=== PATIENT | female | born 2000 | race Caucasian/White ===

== ENCOUNTER 2024-06-09 23:35 | Emergency (ER) | payer BC ==
--- OUTSIDE RECORDS SUMMARY | 2024-06-09 23:38 | XMS REPORT | Continuity of Care Document ---
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 Name Role Phone [email or web address] Attending Clinician UnavailMacey Nicholson Attending Clinician [phone] [email or web address]_D Admitting Clinician Unavailab jennifer Payers Payer Name Policy Type Policy Number Effective Date Expirati on Date Source [facility] - [facility] [id number] 2022 00:00:00 [facility] ([facility] [id number] [place] [id number] 2012 00:00:00 Social History Smoking Status Start Date Stop Date Source Never Smoker [facility] Medications Ordered Medication Name Filled Medication Name Start Date Stop Date Current Medication? Ordering Clinician Indication Dosage Frequency Signature (SIG) Comments Components Source norethindro ne acetate 1.5 mg-ethinyl estradiol 30 mcg tablet TAKE ONE TABLET BY MOUTH EVERY DAY norethindro ne acetate 1.5 mg-ethinyl estradiol 30 mcg tablet TAKE ONE TABLET BY MOUTH EVERY DAY No norethindr one acetate 1.5 mg-ethinyl estradiol 30 mcg tablet TAKE ONE TABLET BY MOUTH EVERY DAY [facility] Aurovela 1.5/30 (21) 1.5 mg-30 mcg tablet TAKE 1 TABLET BY MOUTH EVERY DAY Aurovela 1.5/30 (21) 1.5 mg-30 mcg tablet TAKE 1 TABLET BY MOUTH EVERY DAY No Aurovela 1.5/30 (21) 1.5 mg-30 mcg tablet TAKE 1 TABLET BY MOUTH EVERY DAY [facility] Vital Signs Vital Name Observation Time Observation Value Comments S ource BP Diastolic 2022-04-11 00:00:00 64 mm[Hg] [facility] Height 2022-04-11 00:00:00 68 [in_i] [facility] BMI (Body Mass Index) 2022-04-11 00:00:00 19.8 kg/m2 [facility] BP Systolic 2022-04-11 00:00:00 112 mm[Hg] [facility] Body Weight 2022-04-11 00:00:00 130 [lb_av] [facility] BP Diastolic 2020-10-12 00:00:00 60 mm[Hg] [facility] Height 2020-10-12 00:00:00 68 [in_i] [facility] BMI (Body Mass Index) 2020-10-12 00:00:00 19.8 kg/m2 [facility] BP Systolic 2020-10-12 00:00:00 110 mm[Hg] [facility] Body Weight 2020-10-12 00:00:00 130 [lb_av] [facility] Encounters Start Date/Time End Date/Time Encounter Type Admission Type Attending [facility] Facility Care Department Encounter ID Source 2023-09-14 00:00:00 2023-09-14 00:00:00 Outpatient [facility] Black_D PRIV PRIV [id number] [facility] 2023-06-25 00:00:00 2023-06-25 00:00:00 Outpatient [facility] Black_D PRIV PRIV [id number] [facility] 2023-06-25 00:00:00 2023-06-25 00:00:00 Outpatient [facility] Black_D PRIV PRIV [id number] [facility] 2023-06-20 00:00:00 2023-06-20 00:00:00 Outpatient [facility] Black_D PRIV PRIV [id number] [facility] 2023-06-18 00:00:00 2023-06-18 00:00:00 Outpatient [facility] Black_D PRIV PRIV [id number] [facility] 2023-04-29 00:00:00 2023-04-29 00:00:00 Outpatient [facility] Black_D PRIV PRIV [id number] [facility] 2022-04-11 00:00:00 2022-04-11 00:00:00 Macey Sharma MD: [place] [address] , Ph. [facility] - [facility] [place] Office [id number] [facility] 2022-04-01 00:00:00 2022-04-01 00:00:00 Outpatient [facility] Black_D PRIV PRIV [id number] [facility] 2021-10-01 12:03:00 2021-10-01 12:03:00 Outpatient [facility] Black_D PRIV PRIV [id number] [facility] 2020-11-23 01:05:00 2020-11-23 01:05:00 Outpatient [facility] Black_D PRIV PRIV [id number] [facility] 2020-11-10 04:33:00 2020-11-10 04:33:00 Outpatient [facility] Black_D PRIV PRIV [id number] [facility] 2020-10-12 00:00:00 2020-10-12 00:00:00 Outpatient ZacharyMacey PRIV PRIV [id number] 2020-10-12 00:00:00 2020-10-12 00:00:00 Macey Sharma MD: [place] [address] , Ph. [facility] - [facility] [place] Office [id number] [facility]
[2024-06-10] MEDS ORDERED: KETOROLAC 10 MG TAB ONE (00:33)
[2024-06-10] MEDS ORDERED: CODEINE 30MG/APAP 300MG TAB ONE (00:34)
[2024-06-10] MEDS ORDERED: methocarbamoL 750 MG TAB ONE (00:34)
[2024-06-10 00:39] LABS: Specific Gravity 1.008 (1.005-1.030)
--- NOTE | 2024-06-10 02:34 | EDPHYS ---
Physician Documentation [facility] Name: Kylie Mazariegos Age: 24 yrs Sex: Female : 2000 Arrival Date: 06/09/2024 Time: 23:35 Bed 13 Private MD: ED Physician Wilberto Lyles HPI: 06/09 23:38 This 24 yrs old Female presents to ER via Unassigned with complaints of Leg sp4 Pain, Low Back Pain. 06/10 20:15 24-year-old female presents with lower back pain. sp4 20:15 Reports that she sustained back injury at work. 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 Send patient has lower back pain with pain radiating down the left leg. No gait impairment. Pain is worse on ambulation. . 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 - Infectious Disease History:: Denies. - Social history:: Smoking status: Reported history of juuling and/or vaping. Patient uses alcohol, but reports only rare drinking. Patient/guardian denies using street drugs. - Family history:: not pertinent. ROS: 06/10 20:15 Constitutional: Negative for fever, chills, and weight loss, positive for lumbar pain sp4 All other systems are negative, Exam: 20:15 Constitutional: This is a well developed, well nourished patient who is awake, alert, sp4 and in no acute distress. Head/Face: Normocephalic, atraumatic. Eyes: Pupils equal round and reactive to light, extra-ocular motions intact. Lids and lashes normal. Conjunctiva and sclera are not injected. Cornea within normal limits. Periorbital areas with no swelling, redness, or edema. ENT: Nares patent. No nasal discharge, no septal abnormalities noted. Tympanic membranes are normal and external auditory canals are clear. Oropharynx with no redness, swelling, or masses, exudates, or evidence of obstruction, uvula midline. Mucous membranes moist. Neck: Trachea midline, no thyromegaly or masses palpated, and no cervical lymphadenopathy. Supple, full range of motion without nuchal rigidity, or vertebral point tenderness. Chest/axilla: Normal chest wall appearance and motion. Nontender with no deformity. No lesions are appreciated. Cardiovascular: Regular rate and rhythm with a normal S1 and S2. No gallops, murmurs, or rubs. Normal PMI, no JVD. No pulse deficits. Respiratory: Lungs have equal breath sounds bilaterally, clear to auscultation and percussion. No rales, rhonchi or wheezes noted. No increased work of breathing, no retractions or nasal flaring. Abdomen/GI: Soft, with normal bowel sounds. No distension or tympany. No guarding or rebound. No evidence of tenderness throughout. Back: No spinal tenderness. Positive for posterior upper lumbar tenderness with bilateral paraspinal lumbar tenderness. Normal gait Skin: Warm, dry with normal turgor. Normal color with no rashes, no lesions, and no evidence of cellulitis. MS/ Extremity: Pulses equal, no cyanosis. Neurovascular intact. Full, normal range of motion. Bilateral strength is normal on exam Neuro: Awake and alert, GCS 15, oriented to person, place, time, and situation. Cranial nerves II-XII grossly intact. Motor strength 5/5 in all extremities. Sensory grossly intact. Bilateral lower extremity reflexes are normal. Lateral lower sensation is normal, there is normal gait. No signs of neurologic deficits Psych: Awake, alert, with orientation to person, place and time. Behavior, mood, and affect are within normal limits Vital Signs: 06/09 23:46 BP 132 / 73; Pulse 57; Resp 17 S; Temp 97.5(O); Pulse Ox 99% on R/A; Weight 63.5 kg lg3 (R); Height 5 ft. 9 in. (R); Pain 02/27; 06/10 01:20 BP 108 / 68; Pulse 51; Resp 17 S; Pulse Ox 99% on R/A; ha1 02:20 BP 109 / 70; Pulse 52; Resp 17; Temp 97.6; Pulse Ox 99% on R/A; ha1 06/09 23:46 Body Mass Index 20.67 (63.50 kg, 175.26 cm) lg3 11 23:46 Pain Scale: Adult lg3 [place] Coma Score: 20:15 Eye Response: spontaneous(4). Motor Response: obeys commands(6). Verbal Response: sp4 oriented(5). Total: 15. MDM: 06/09 23:59 Medical Screening Exam initiated sp4 06/10 02:27 ED course: CLINICAL HISTORY: Spinal injury. COMPARISON: None. TECHNIQUE: CT PELVIS sp4 WITHOUT IV CONTRAST on 06/09/2024 11:50 PM SUPERVISOR WATERPROOFING This exam was performed according to our departmental dose-optimization program, which includes automated exposure control, adjustment of the mA and/or kV according to patient size and/or use of iterative reconstruction technique. FINDINGS: There is no bowel obstruction. Urinary bladder is unremarkable. There is no free fluid. Skeleton: There are no acute osseous findings. No suspicious bony lesions. IMPRESSION: No acute posttraumatic findings. Electronically signed by: Vipul King MD 06/10/2024 02:24 AM SUPERVISOR WATERPROOFING R. ED course: CLINICAL HISTORY: Back injury. COMPARISON: None. TECHNIQUE: CT LUMBAR SPINE WITHOUT IV CONTRAST on 06/09/2024 11:50 PM SUPERVISOR WATERPROOFING This exam was performed according to our departmental dose-optimization program, which includes automated exposure control, adjustment of the mA and/or kV according to patient size and/or use of iterative reconstruction technique. FINDINGS: There is no acute fracture. Vertebral body heights are preserved. Alignment is anatomic. Disc spaces are maintained. Soft tissues are unremarkable. IMPRESSION: No acute fracture or subluxation. . 20:19 Differential diagnosis: dislocation, closed fracture, contusion, abrasion, tendonitis, sp4 Lumbar contusion. Data reviewed: vital signs, nurses notes, radiologic studies, CT scan. 20:20 ED course: Normal, no sign of neurologic impairment, no sign of spinal cord sp4 compression, no sign of cauda equina, normal gait, patient advised work release for the next 7 days. As needed medications for back pain were prescribed. 06/09 23:49 Order name: Test, Urine; Complete Time: 01:32 sp4 06/09 23:50 Order name: CT Lumbar Spine Wo Con sp4 06/09 23:50 Order name: CT Pelvis wo Cont sp4 Administered Medications: 00:51 Drug: Ketorolac PO 10 mg PO once Route: PO; ha1 01:20 Follow up: Response: No adverse reaction; Marked relief of symptoms ha1 00:51 Drug: Acetaminophen-Codeine PO (300 mg-30 mg) 2 tabs PO once; RASS on ADMIN: Combtv4, ha1 Very Agttd3, Agttd2, Rstlss1, AlertClm0, Drwsy-1, Lt Sdtn-2, Mod Sdtn-3, Dp Sdtn-4, UnArsble-5 Route: PO; 01:20 Follow up: Response: No adverse reaction; Marked relief of symptoms; Pain is decreased ha1 00:51 Drug: Methocarbamol PO 1500 mg PO once Route: PO; ha1 01:20 Follow up: Response: No adverse reaction; Marked relief of symptoms ha1 Disposition Summary: 06/10/24 02:33 Discharge Ordered Notes: Location: Home sp4 Problem: new sp4 Symptoms: have improved sp4 Condition: Stable sp4 Diagnosis - Acute lumbar contusion, acute lower back injury, Acute musculoskeletal pain Lumbar sp4 spine Followup: sp4 - With: Private Physician - When: As needed - Reason: Discharge Instructions: - Discharge Summary Sheet sp4 - Acute Back Pain, Adult sp4 Forms: - Work release form sp4 - Patient Portal Instructions sp4 Prescriptions: - naproxen 500 mg Oral tablet - take 1 tablet ORAL route every 12 hours PRN pain; 50 tablet; Refills: 0, sp4 Product Selection Permitted - methocarbamol 750 mg Oral tablet - take 2 tablets ORAL route every 8 hours for 8-10 days PRN back pain; 50 tablet; sp4 Refills: 0, Product Selection Permitted Signatures: Dispatcher [employer] Dang Reyes, RN RN lg3 Milagro Braswell RN RN ha1 Wilberto Lyles MD MD sp4
--- NOTE | 2024-06-10 02:34 | ER ---
Nurse's Notes [facility] Name: Kylie Mazariegos Age: 24 yrs Sex: Female : 2000 Arrival Date: 06/09/2024 Time: 23:35 Bed 13 Private MD: Diagnosis: Acute lumbar contusion, acute lower back injury, Acute musculoskeletal pain Lumbar spine Presentation: 06/09 23:46 Chief complaint: Patient states: hit right upper back at work 2 days ago with lg3 intermittent pain. new onset pain to entire mid and lower back radiating to left leg. Coronavirus screen: Client denies travel out of the [place] in the last 14 days. At this time, the client does not indicate any symptoms associated with coronavirus-19. Ebola Screen: No symptoms or risks identified at this time. Initial Sepsis Screen: Does the patient meet any 2 criteria? No. Patient's initial sepsis screen is negative. Does the patient have a suspected source of infection? No. Patient's initial sepsis screen is negative. Risk Assessment: Do you want to hurt yourself or someone else? Patient reports no desire to harm self or others. Onset of symptoms was June 06, 2024. 23:46 Method Of Arrival: Ambulatory lg3 23:46 Acuity: SARITA 3 lg3 Triage Assessment: 23:49 General: Appears in no apparent distress. uncomfortable, Behavior is calm, cooperative. lg3 Pain: Complains of pain in back and left leg. EENT: No deficits noted. No signs and/or symptoms were reported regarding the EENT system. Neuro: No deficits noted. [place] Agitation-Sedation Scale (RASS): 0 - Alert and Calm Level of Consciousness is awake, alert, obeys commands, Oriented to person, place, time, situation. Cardiovascular: No deficits noted. Denies chest pain, shortness of breath, Capillary refill < 3 seconds Clubbing of nail beds is absent JVD is absent Patient's skin is warm and dry. Respiratory: No deficits noted. Airway is patent Respiratory effort is even, unlabored, Respiratory pattern is regular, symmetrical. GI: No deficits noted. No signs and/or symptoms were reported involving the gastrointestinal system. : No signs and/or symptoms were reported regarding the genitourinary system. Derm: No deficits noted. No signs and/or symptoms reported regarding the dermatologic system. Skin is intact, is healthy with good turgor, Skin is dry, Skin is normal, Skin temperature is warm. Musculoskeletal: Circulation, motion, and sensation intact. Range of motion: intact in all extremities, Reports pain in back and left leg. 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 - Infectious Disease History:: Denies. - Social history:: Smoking status: Reported history of juuling and/or vaping. Patient uses alcohol, but reports only rare drinking. Patient/guardian denies using street drugs. - Family history:: not pertinent. Screenin:52 [facility] ED Fall Risk Assessment (Adult) History of falling in the last 3 months, lg3 including since admission No falls in past 3 months (0 pts) Confusion or Disorientation No (0 pts) Intoxicated or Sedated No (0 pts) Impaired Gait No (0 pts) Mobility Assist Device Used No (0 pt) Altered Elimination No (0 pt) Score/Fall Risk Level 0 - 2 = Low Risk Oriented to surroundings, Maintained a safe environment, Educated pt \T\ family on fall prevention, incl call for assistance when getting out of bed, Assessed \T\ reinforced patient's understanding of fall precautions. Abuse screen: Denies threats or abuse. Denies injuries from another. Nutritional screening: No deficits noted. Tuberculosis screening: No symptoms or risk factors identified. Assessment: 23:52 General: see triage assessment. lg3 06/10 01:00 Reassessment: Patient and/or family updated on plan of care and expected duration. Pain ha1 level reassessed. Patient is alert, oriented x 3, equal unlabored respirations, skin warm/dry/pink. 02:00 Reassessment: Patient and/or family updated on plan of care and expected duration. Pain ha1 level reassessed. Patient is alert, oriented x 3, equal unlabored respirations, skin warm/dry/pink. 02:47 Reassessment: Patient and/or family updated on plan of care and expected duration. Pain ha1 level reassessed. Patient is alert, oriented x 3, equal unlabored respirations, skin warm/dry/pink. Patient denies pain at this time. Patient states feeling better. Patient states symptoms have improved. Vital Signs: 06/09 23:46 BP 132 / 73; Pulse 57; Resp 17 S; Temp 97.5(O); Pulse Ox 99% on R/A; Weight 63.5 kg lg3 (R); Height 5 ft. 9 in. (R); Pain 8/; 06/10 01:20 BP 108 / 68; Pulse 51; Resp 17 S; Pulse Ox 99% on R/A; ha1 02:20 BP 109 / 70; Pulse 52; Resp 17; Temp 97.6; Pulse Ox 99% on R/A; ha1 06/09 23:46 Body Mass Index 20.67 (63.50 kg, 175.26 cm) lg3 06/09 23:46 Pain Scale: Adult lg3 [place] Coma Score: 20:15 Eye Response: spontaneous(4). Motor Response: obeys commands(6). Verbal Response: sp4 oriented(5). Total: 15. ED Course: 06/09 23:37 Patient arrived in ED. jj6 23:38 Wilberto Lyles MD is Attending Physician. sp4 23:49 Triage completed. lg3 23:49 Arm band placed on right wrist. lg3 23:53 Patient has correct armband on for positive identification. Bed in low position. Call ha1 light in reach. Side rails up X 1. Adult w/ patient. 06/10 00:27 Milagro Braswell RN is Primary Nurse. ha1 01:09 CT Lumbar Spine Wo Con In Process Unspecified. EDMS 01:09 CT Pelvis wo Cont In Process Unspecified. EDMS 02:48 Provided Education on: medication administration . ha1 02:48 No provider procedures requiring assistance completed. Patient did not have IV access ha1 during this emergency room visit. Administered Medications: 00:51 Drug: Ketorolac PO 10 mg PO once Route: PO; ha1 01:20 Follow up: Response: No adverse reaction; Marked relief of symptoms ha1 00:51 Drug: Acetaminophen-Codeine PO (300 mg-30 mg) 2 tabs PO once; RASS on ADMIN: Combtv4, ha1 Very Agttd3, Agttd2, Rstlss1, AlertClm0, Drwsy-1, Lt Sdtn-2, Mod Sdtn-3, Dp Sdtn-4, UnArsble-5 Route: PO; 01:20 Follow up: Response: No adverse reaction; Marked relief of symptoms; Pain is decreased ha1 00:51 Drug: Methocarbamol PO 1500 mg PO once Route: PO; ha1 01:20 Follow up: Response: No adverse reaction; Marked relief of symptoms ha1 Medication: 02:32 VIS not applicable for this client. ha1 Outcome: 02:33 Discharge ordered by . sp4 02:48 Discharged to home ambulatory, with family, ha1 02:48 Condition: stable 02:48 Discharge instructions given to patient, Instructed on discharge instructions, follow up and referral plans. no driving heavy equipment, medication usage, Demonstrated understanding of instructions, follow-up care, medications, Prescriptions given X 2, 02:49 Patient left the ED. ha1 Signatures: Dispatcher [employer] EDMS Dang Mccain RN RN lg3 Alisa Persaud jj6 Milagro Braswell RN RN ha1 Wilberto Lyles MD MD sp4
[2024-06-10 02:53] VITALS: O2SAT 99
[2024-06-10 02:55] VITALS: BP 109/70; TEMP 97.6
--- NOTE | 2024-06-10 06:48 | RAD REPORT ---
CLINICAL HISTORY: Spinal injury. COMPARISON: None. TECHNIQUE: CT PELVIS WITHOUT IV CONTRAST on 06/09/2024 11:50 PM ELECTRIC DETECTOR OPERATOR This exam was performed according to our departmental dose-optimization program, which includes autom ated exposure control, adjustment of the mA and/or kV according to patient size and/or use of iterative reconstruction technique. FINDINGS: There is no bowel obstruction. Urinary bladder is unremarkable. There is no free fluid. Skeleton: There are no acute osseous findings. No suspicious bony lesions. IMPRESSION: No acute posttraumatic findings. Electronically signed by: Vipul King MD 06/10/2024 02:24 AM ELECTRIC DETECTOR OPERATOR RP Due to temporary technical issues with the PACS/[employer] reporting system, reports are being whit d by the in-house radiologist without review as a courtesy to ensure prompt reporting the interpreting radiologist is fully responsible for the content of the report. Transcribed Date/Time: 06/10/2024 6:48 AM
--- NOTE | 2024-06-10 06:49 | RAD REPORT ---
CLINICAL HISTORY: Back injury. COMPARISON: None. TECHNIQUE: CT LUMBAR SPINE WITHOUT IV CONTRAST on 06/09/2024 11:50 PM DIRECTOR OF HOTEL OPERATIONS This exam was performed according to our departmental dose-optimization program, which includes autom ated exposure control, adjustment of the mA and/or kV according to patient size and/or use of iterative reconstruction technique. FINDINGS: There is no acute fracture. Vertebral body heights are preserved. Alignment is anatomic. Disc spaces are maintained. Soft tissues are unremarkable. IMPRESSION: No acute fracture or subluxation. Electronically signed by: Vipul King MD 06/10/2024 02:21 AM DIRECTOR OF HOTEL OPERATIONS RP Due to temporary technical issues with the PACS/[employer] reporting system, reports are being whit d by the in-house radiologist without review as a courtesy to ensure prompt reporting the interpreting radiologist is fully responsible for the content of the report. Transcribed Date/Time: 06/10/2024 6:48 AM
== END 2024-06-10 02:49 | disposition home or self-care (01) ==
LOC: ER 23:35
DX: S30.0XXA Contusion of lower back and pelvis, initial encounter (principal); M54.50 Low back pain, unspecified; F41.9 Anxiety disorder, unspecified
CPT/HCPCS: 72131; 72192; 81025; 99283

== ENCOUNTER 2025-03-08 03:40 | Emergency (ER) | payer BC, SELFPAY ==
--- OUTSIDE RECORDS SUMMARY | 2025-03-08 03:43 | XMS REPORT | Continuity of Care Document ---
Author Name Unknown Address [address] [facility] [address] [place] [address] Organization [facility] [place] Address [address] [facility] [address] [place] [address] Care Team Providers Care Associate Professor Of Chemistry Name Role Phone GC_LEXIE_Zachary_D Attending Clinician Unavailab Macey Olsen Attending Clinician [phone] GC_[email or web address]_[email or web address]_D Admitting Clinician Unavailab jennifer Payers Payer Name Policy Type Policy Number Effective Date Expirati on Date Source [facility] [id number] 2022 00:00:00 [facility] [id number] [place] [id number] 2012 00:00:00 Problems Condition Name Condition Details Condition Category Status Onset Date Resolution Date Last Treatment Date Treating Clinician Comments Source Anxiety Anxiety Problem Active 2023-07 00:00: 00 [facility] Depressive disorder Depressive Disorder Problem Active 2023-07 00:00: 00 [facility] Dysmenorrh ea Dysmenorrh ea Problem Active 2023-07 00:00: 00 [facility] Social History Smoking Status Start Date Stop Date Source Current Some Day Smoker [facility] Medications Ordered Medication Name Filled Medication Name Start Date Stop Date Current Medication? Ordering Clinician Indication Dosage Frequency Signature (SIG) Comments Components Source Advil Advil No Advil [facility] Midol Midol No Midol [facility] Multi Vitamin Multi Vitamin No Multi Vitamin [facility] Tylenol Tylenol No Tylenol [facility] Aurovela Fe 1.5/30 (28) 1.5 mg-30 mcg (21)/75 mg (7) tablet TAKE ONE TABLET BY MOUTH EVERY DAY Aurovela Fe 1.5/30 (28) 1.5 mg-30 mcg (21)/75 mg (7) tablet TAKE ONE TABLET BY MOUTH EVERY DAY No Aurovela Fe 1.5/30 (28) 1.5 mg-30 mcg (21)/75 mg (7) tablet TAKE ONE TABLET BY MOUTH EVERY DAY [facility] bupropion HCl XL 150 mg 24 hr tablet, extended release TAKE ONE (1) TABLET(S) BY MOUTH EVERY MORNING. bupropion HCl XL 150 mg 24 hr tablet, extended release TAKE ONE (1) TABLET(S) BY MOUTH EVERY MORNING. No bupropion HCl XL 150 mg 24 hr tablet, extended release TAKE ONE (1) TABLET(S) BY MOUTH EVERY MORNING. [facility] Zafemy 150 mcg-35 mcg/24 hr transdermal patch Apply 1 patch every week by transdermal route for 30 days. Zafemy 150 mcg-35 mcg/24 hr transdermal patch Apply 1 patch every week by transdermal route for 30 days. No Zafemy 150 mcg-35 mcg/24 hr transderma l patch Apply 1 patch every week by transderma l route for 30 days. [facility] Immunizations Ordered Immunization Name Filled Immunization Name Date Status Comments Source influenza, unspecified formulation influenza, unspecified formulation 2020-06-20 00:00:00 Completed [facility] Vital Signs Vital Name Observation Time Observation Value Comments S ource BMI (Body Mass Index) 2024-09-22 00:00:00 22 kg/m2 [facility] Body Weight 2024-09-22 00:00:00 149 [lb_av] [facility] Height 2024-09-22 00:00:00 69 [in_i] [facility] BP Diastolic 2024-09-22 00:00:00 73 mm[Hg] [facility] BP Systolic 2024-09-22 00:00:00 124 mm[Hg] [facility] BP Diastolic 2024-07-08 00:00:00 84 mm[Hg] [facility] BMI (Body Mass Index) 2024-07-08 00:00:00 21.5 kg/m2 [facility] Body Weight 2024-07-08 00:00:00 145.8 [lb_av] [facility] Height 2024-07-08 00:00:00 69 [in_i] [facility] BP Systolic 2024-07-08 00:00:00 124 mm[Hg] [facility] BP Diastolic 2022-04-11 00:00:00 64 mm[Hg] [facility] [...] End Date/Time Encounter Type Admission Type Attending [facility] Facility Care Department Encounter ID Source 2024-09-22 00:00:00 2024-09-22 00:00:00 ENEDINA Manjarrez: [address], [facility] [address], [place] [address] , Ph. [facility] - GC_GCBZW_Cristal Knowles* [id number] [facility] 2024-07-08 00:00:00 2024-07-08 00:00:00 ENEDINA Manjarrez: [address], [facility] [address], [place] [phone] , Ph. [facility] - GC_GCBZW_Cristal Knowles* [id number] [facility] 2023-09-14 00:00:00 2023-09-14 00:00:00 Outpatient GC_[facility]_ Black_D [facility] [id number] [facility] 2023-06-25 00:00:00 2023-06-25 00:00:00 Outpatient GC_SWHAOM[facility]_ Black_D PRIV PRIV [id number] [facility] 2023-06-25 00:00:00 2023-06-25 00:00:00 Outpatient GC_[facility]_ Black_D PRIV PRIV [id number] [facility] 2023-06-20 00:00:00 2023-06-20 00:00:00 Outpatient GC_[facility]_ Black_D PRIV PRIV [id number] [facility] 2023-06-18 00:00:00 2023-06-18 00:00:00 Outpatient GC_[facility]_ Black_D PRIV PRIV [id number] [facility] 2023-04-29 00:00:00 2023-04-29 00:00:00 Outpatient GC_[facility]_ Black_D PRIV PRIV [id number] [facility] 2022-04-11 00:00:00 2022-04-11 00:00:00 Macey Sharma MD: [address] [place] [address] , Ph. [facility] - GC_SWHAOMC_ [place] [facility] [id number] [facility] 2022-04-01 00:00:00 2022-04-01 00:00:00 Outpatient GC_[facility]_ Black_D PRIV PRIV [id number] [facility] 2021-10-01 12:03:00 2021-10-01 12:03:00 Outpatient GC_[facility]_ Black_D PRIV PRIV [id number] [facility] 2020-11-23 01:05:00 2020-11-23 01:05:00 Outpatient GC_[facility]_ Black_D PRIV PRIV [id number] [facility] 2020-11-10 04:33:00 2020-11-10 04:33:00 Outpatient GC_SWH[facility]OM[facility]_ Black_D PRIV PRIV [id number] [facility] 2020-10-12 00:00:00 2020-10-12 00:00:00 Outpatient Macey Sharma [facility] [id number] 2020-10-12 00:00:00 2020-10-12 00:00:00 Macey Sharma MD: [address] [place] [address] , Ph. [facility] [place] [facility] [id number] [facility]
[2025-03-08] MEDS ORDERED: DIAZEPAM 5 MG TABLET ONE (03:57)
[2025-03-08 04:33] LABS: Absolute Lymphocytes (CBC) 2.8 K/uL (0.7-4.9); Hematocrit 38.4 % (36.0-45.0); Hemoglobin 13.1 g/dL (12.0-15.0); MCH 30.1 pg (27.0-35.0); MCHC 34.3 g/dL (32.0-36.0); MCV 87.8 fL (80-100); MPV 10.1 fL (7.6-11.3); Nucleated RBC Absolute Count 0.0 (0-0); Nucleated Red Blood Cells % 0.0 % (0-0); RBC Red Blood Cell Count 4.37 M/uL (3.86-4.86); White Blood Count 7.40 thou/uL (4.3-10.9)
[2025-03-08 04:54] LABS: ALT/SGPT 21 U/L (13-56); AST/SGOT 12 U/L (15-37); Albumin 3.7 g/dL (3.4-5.0); Albumin/Globulin Ratio 1.0 (1.1-1.8); Alkaline Phosphatase 59 U/L (45-117); Anion Gap 9.6 mEq/L (5.0-15.0); BUN Blood Urea Nitrogen 10 mg/dL (7-18); Bilirubin Indirect, Calculated 0.1 mg/dL (0.2-0.8); Globulin 3.7 g/dL (2.3-3.5); Glucose Level 112 mg/dL (74-106); Magnesium 2.1 mg/dL (1.6-2.4); NT PRO-BNP 49 pg/mL (<125); Potassium 3.6 mEq/L (3.5-5.1); Thyroid Stimulating Hormone 3.880 uIU/mL (0.358-3.740); Troponin High Sensitivity < 3.0 pg/mL (<58.9)
--- NOTE | 2025-03-08 05:16 | RAD REPORT ---
INDICATION: CHEST PAIN COMPARISON: No existing relevant imaging studies are available FINDINGS: Single frontal view of the chest was obtained. SUPPORT DEVICES: None HEART/MEDIASTINUM: Cardiomediastinal contours are normal. LUNGS/PLEURA: Lungs are clear. No pleural effusion or pneumothorax. OTHER: No other significant findings. IMPRESSION: No acute findings. Electronically signed by: Hugo Mckeon DO 03/08/2025 05:07 AM CDT RP NR Due to temporary technical issues with the PACS/admetricks reporting system, reports are being whit d by the in-house radiologist without review as a courtesy to ensure prompt reporting the interpreting radiologist is fully responsible for the content of the report. Transcribed Date/Time: 03/08/2025 5:55 AM
--- NOTE | 2025-03-08 05:36 | ER ---
Nurse's Notes [facility] Name: Kylie Mazariegos Age: 24 yrs Sex: Female : 2000 Arrival Date: 03/08/2025 Time: 03:40 Bed 5 Private MD: Marko Patrick Diagnosis: Acute anxiety attack, acute dyspnea Presentation: 03/08 03:52 Chief complaint: Patient states: PT STATES SHE WAS FALLING ASLEEP AND "COULD FEEL br2 HERSELF NOT BREATHING". THIS OCCURRED APPROX 3 TIMES. PT STATE SHE SAT UP AND HR (PER WATCH) WAS IN THE 140'S. PT C/O CP DUE TO TRYING TO CATCH HER BREATH. DENIES N/V/D/F/COUGH. Coronavirus screen: Client denies travel out of the [place] in the last 14 days. Ebola Screen: Patient denies travel to an Ebola-affected area in the 21 days before illness onset. Initial Sepsis Screen: Does the patient meet any 2 criteria? No. Patient's initial sepsis screen is negative. Does the patient have a suspected source of infection? No. Patient's initial sepsis screen is negative. Risk Assessment: Do you want to hurt yourself or someone else? Patient reports no desire to harm self or others. Onset of symptoms is unknown. 03:52 Method Of Arrival: Ambulatory br2 03:52 Acuity: SARITA 3 br2 Triage Assessment: 03:55 General: Appears in no apparent distress. comfortable, Behavior is cooperative, br2 anxious. Pain: Complains of pain in anterior aspect of right upper chest, anterior aspect of left upper chest, right breast and left breast Pain currently is 3 out of 10 on a pain scale. 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 - Infectious Disease History:: Denies. - Social history:: Smoking status: Reported history of juuling and/or vaping. Patient uses alcohol, occasionally. Patient/guardian denies using street drugs. Screenin:04 [facility] ED Fall Risk Assessment (Adult) History of falling in the last 3 months, tb4 including since admission No falls in past 3 months (0 pts) Confusion or Disorientation No (0 pts) Intoxicated or Sedated No (0 pts) Impaired Gait No (0 pts) Mobility Assist Device Used No (0 pt) Altered Elimination No (0 pt) Score/Fall Risk Level 0 - 2 = Low Risk Oriented to surroundings, Maintained a safe environment. Abuse screen: Denies threats or abuse. Denies injuries from another. Nutritional screening: No deficits noted. Tuberculosis screening: No symptoms or risk factors identified. Assessment: 04:04 Reassessment: Patient is alert, oriented x 3, equal unlabored respirations, skin tb4 warm/dry/pink. General: Appears Behavior is calm, cooperative, anxious. Pain: Denies pain. Neuro: No deficits noted. Level of Consciousness is awake, alert, obeys commands, Oriented to person, place, time, situation, Knot Borer are equal bilaterally Moves all extremities. Full function Gait is steady, Speech is normal, Facial symmetry appears normal. Respiratory: Reports shortness of breath at rest Airway is patent Trachea midline Respiratory effort is even, unlabored. GI: No signs and/or symptoms were reported involving the gastrointestinal system. : No signs and/or symptoms were reported regarding the genitourinary system. EENT: No signs and/or symptoms were reported regarding the EENT system. Derm: No signs and/or symptoms reported regarding the dermatologic system. Skin is intact, is healthy with good turgor, Skin is normal, Skin temperature is warm. Musculoskeletal: Circulation, motion, and sensation intact. Range of motion: intact in all extremities. Vital Signs: 03:52 BP 150 / 90; Pulse 92; Resp 18; Temp 97.1(IR); Pulse Ox 97% on R/A; Weight 65.77 kg; br2 Height 5 ft. 9 in. ; Pain 3/10; 04:04 BP 150 / 90; Pulse 86; Resp 18; Temp 97.3(O); Pulse Ox 97% on R/A; Weight 63.5 kg; tb4 Height 5 ft. 9 in. ; Pain 0/10; 05:50 BP 138 / 81; Pulse 86; Resp 17; Pulse Ox 99% on R/A; Pain 0/10; tb4 04:04 Body Mass Index 20.67 (63.50 kg, 175.26 cm) tb4 03:52 Pain Scale: Adult br2 04:04 Pain Scale: Adult tb4 05:50 Pain Scale: Adult tb4 [place] Coma Score: 04:03 Eye Response: spontaneous(4). Motor Response: obeys commands(6). Verbal Response: sp4 oriented(5). Total: 15. ED Course: 03:43 Patient arrived in ED. jj6 03:43 Marko Patrick MD is Private Physician. jj6 03:44 Wilberto Lyles MD is Attending Physician. sp4 03:53 Sulaiman Samson, RN is Primary Nurse. bm8 03:55 Triage completed. br2 03:55 Arm band placed on right wrist. br2 04:04 Patient has correct armband on for positive identification. Placed in gown. Bed in low tb4 position. Call light in reach. Side rails up X 1. Client placed on continuous cardiac and pulse oximetry monitoring. NIBP monitoring applied. Pulse ox on. 04:04 Initial lab(s) drawn, by ED staff, sent to lab. EKG done, by ED staff. Inserted saline tb4 lock: 20 gauge in right antecubital area, using aseptic technique. Blood collected. Flushed with 10 mL NS. 04:44 X-ray(s) taken. tb4 04:53 XRAY Chest (1 view) In Process Unspecified. EDMS 05:35 Rachael Crandall MD is Referral Physician. sp4 05:52 Provided Education on: Follow up with primary care. tb4 05:52 No provider procedures requiring assistance completed. IV discontinued, intact, tb4 bleeding controlled, No redness/swelling at site. Pressure dressing applied. Administered Medications: 03:58 Drug: Diazepam PO 5 mg PO once Route: PO; bm8 05:48 Follow up: Response: No adverse reaction; Anxiety decreased tb4 Medication: 04:04 VIS not applicable for this client. tb4 Outcome: 05:36 Discharge ordered by . sp4 05:51 Discharged to home ambulatory, with family, tb4 05:51 Condition: stable 05:51 Discharge instructions given to patient, Instructed on discharge instructions, follow up and referral plans. Demonstrated understanding of instructions, follow-up care, 05:53 Patient left the ED. tb4 Signatures: Dispatcher [employer] EDMS Alisa Persaud j6 Wilberto Lyles MD MD sp4 Sulaiman Samson, RN RN bm8 Yeimy Salazar, RN RN br2 Judith Little, RN RN tb4
--- NOTE | 2025-03-08 05:36 | EDPHYS ---
Physician Documentation [facility] Name: Kylie Mazariegos Age: 24 yrs Sex: Female : 2000 Arrival Date: 03/08/2025 Time: 03:40 Bed 5 Private MD: Marko Patrick ED Physician Wilberto Lyles HPI: 03/08 03:44 This 24 yrs old Other Race Female presents to ER via Unassigned with complaints of Pt sp4 states she stopped breathing 3 times while falling asleep. 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 - Infectious Disease History:: Denies. - Social history:: Smoking status: Reported history of juuling and/or vaping. Patient uses alcohol, occasionally. Patient/guardian denies using street drugs. Exam: 04:03 Constitutional: This is a well developed, well nourished patient who is awake, alert, sp4 and in no acute distress. Head/Face: Normocephalic, atraumatic. Eyes: Pupils equal round and reactive to light, extra-ocular motions intact. Lids and lashes normal. Conjunctiva and sclera are not injected. Cornea within normal limits. Periorbital areas with no swelling, redness, or edema. ENT: Nares patent. No nasal discharge, no septal abnormalities noted. Tympanic membranes are normal and external auditory canals are clear. Oropharynx with no redness, swelling, or masses, exudates, or evidence of obstruction, uvula midline. Mucous membranes moist. Neck: Trachea midline, no thyromegaly or masses palpated, and no cervical lymphadenopathy. Supple, full range of motion without nuchal rigidity, or vertebral point tenderness. Chest/axilla: Normal chest wall appearance and motion. Nontender with no deformity. No lesions are appreciated. Cardiovascular: Regular rate and rhythm with a normal S1 and S2. No gallops, murmurs, or rubs. No pulse deficits. Respiratory: Lungs have equal breath sounds bilaterally, clear to auscultation and percussion. No rales, rhonchi or wheezes noted. No increased work of breathing, no retractions or nasal flaring. Abdomen/GI: Soft, with normal bowel sounds. No distension or tympany. No guarding or rebound. No evidence of tenderness throughout. Back: No spinal tenderness. No costovertebral tenderness. Skin: Warm, dry with normal turgor. Normal color with no rashes, no lesions, and no evidence of cellulitis. MS/ Extremity: Pulses equal, no cyanosis. Neurovascular intact. Full, normal range of motion. Neuro: Awake and alert, GCS 15, oriented to person, place, time, and situation. Cranial nerves II-XII grossly intact. Motor strength 5/5 in all extremities. Sensory grossly intact. Psych: Awake, alert, with orientation to person, place and time. Behavior, mood, and affect are within normal limits 04:03 ECG was reviewed by the Attending Physician. EKG at 0400 normal sinus rhythm with sinus arrhythmia. Vital Signs: 03:52 BP 150 / 90; Pulse 92; Resp 18; Temp 97.1(IR); Pulse Ox 97% on R/A; Weight 65.77 kg; br2 Height 5 ft. 9 in. ; Pain 3/10; 04:04 BP 150 / 90; Pulse 86; Resp 18; Temp 97.3(O); Pulse Ox 97% on R/A; Weight 63.5 kg; tb4 Height 5 ft. 9 in. ; Pain 0/10; 05:50 BP 138 / 81; Pulse 86; Resp 17; Pulse Ox 99% on R/A; Pain 0/10; tb4 04:04 Body Mass Index 20.67 (63.50 kg, 175.26 cm) tb4 03:52 Pain Scale: Adult br2 04:04 Pain Scale: Adult tb4 05:50 Pain Scale: Adult tb4 [place] Coma Score: 04:03 Eye Response: spontaneous(4). Motor Response: obeys commands(6). Verbal Response: sp4 oriented(5). Total: 15. MDM: 03:51 Medical Screening Exam initiated 03/08 03:51 Order name: Basic Metabolic Panel; Complete Time: 05:23 sp4 03/08 03:51 Order name: CBC with Diff; Complete Time: 05:23 sp4 03/08 03:51 Order name: LFT's; Complete Time: 05:23 sp4 03/08 03:51 Order name: Magnesium; Complete Time: 05:23 sp4 03/08 03:51 Order name: NT PRO-BNP; Complete Time: 05:23 sp4 03/08 03:51 Order name: Troponin HS; Complete Time: 05:23 sp4 03/08 03:51 Order name: Test, Serum; Complete Time: 04:39 sp4 03/08 03:51 Order name: TSH; Complete Time: 05:23 sp4 03/08 03:51 Order name: T4 Free; Complete Time: 05:23 sp4 03/08 03:51 Order name: XRAY Chest (1 view) sp4 03/08 03:51 Order name: EKG; Complete Time: 03:51 sp4 03/08 03:51 Order name: Cardiac monitoring; Complete Time: 04:11 sp4 03/08 03:51 Order name: EKG - Nurse/Tech; Complete Time: 04:11 sp4 03/08 03:51 Order name: IV Saline Lock; Complete Time: 04:11 sp4 03/08 03:51 Order name: Labs collected and sent; Complete Time: 04:11 sp4 03/08 03:51 Order name: O2 Per Protocol; Complete Time: 04: sp4 03/08 03:51 Order name: O2 Sat Monitoring; Complete Time: 04:11 sp4 EC:00 Rate is 63 beats/min. Rhythm is irregular, Sinus arrythmia. QRS [place] is Normal. AR sp4 interval is normal. QRS interval is normal. QT interval is normal. No Q waves. T waves are Normal. No ST changes noted. Clinical impression: No evidence of ischemia. Interpreted by me. Reviewed by me. Administered Medications: 03:58 Drug: Diazepam PO 5 mg PO once Route: PO; bm8 05:48 Follow up: Response: No adverse reaction; Anxiety decreased tb4 Disposition Summary: 03/08/25 05:36 Discharge Ordered Problem: new sp4 Symptoms: have improved sp4 Condition: Stable sp4 Diagnosis - Acute anxiety attack, acute dyspnea sp4 Followup: sp4 - With: Rachael Crandall MD - When: 7 - 10 days - Reason: Recheck today's complaints Discharge Instructions: - Discharge Summary Sheet sp4 - Managing Anxiety, Adult sp4 Forms: - Patient Portal Instructions sp4 Signatures: Dispatcher [employer] Wilberto Balderas MD MD sp4 Sulaiman Samson, RN RN bm8 Yeimy Salazar, RN RN br2 Judith Little RN tb4
[2025-03-08 12:20] VITALS: TEMP 97.3
[2025-03-08 12:22] VITALS: BP 138/81; O2SAT 99
== END 2025-03-08 05:53 | disposition home or self-care (01) ==
LOC: ER 03:40
DX: F41.0 Panic disorder [episodic paroxysmal anxiety] (principal)
CPT/HCPCS: 36415; 71045; 80048; 80076; 83735; 83880; 84439; 84443; 84484; 84703; 85025; 99284